=== PATIENT | male | born 1960 | race Two or more races ===

== ENCOUNTER 2023-11-24 17:18 | Emergency (ER) | payer OTHER ==
[~2023-11-24] VITALS: Ht 177.8 cm; Wt 76.2 kg
[~2023-11-24 17:18] MED LIST: CIPRO500 MG PO; PERCOCET 5/321 UDTAB PO; RECTICARE30 GM TP
[2023-11-24] MEDS ORDERED: SYNTHROID88 MCG (19:37)
[2023-11-24] MEDS ORDERED: ZETIA10 MG (19:37)
[2023-11-24] MEDS ORDERED: CRESTOR5 MG (19:37)
[2023-11-24] MEDS ORDERED: TELMISARTAN20 MG (19:38)
[2023-11-24] MEDS ORDERED: PROTONIX40 MG (19:39)
[2023-11-24] MEDS ORDERED: PEPCID AC20 MG (19:39)
[2023-11-24] MEDS ORDERED: PANTOPRAZOLE SODIUM 40 MG/VIAL VIAL IV ONE (22:15)
[2023-11-24] MEDS ORDERED: FAMOTIDINE/PF 20 MG/2 ML VIAL IV ONE (22:15)
[2023-11-24 23:21] LABS: HEMATOCRIT 41.9 % (39.0-48.0); HEMOGLOBIN 14.9 g/dL (13-16.00); MEAN CORPUSCULAR HEMOGLOBIN 32.8 pg (27.00-32.0); MEAN CORPUSCULAR HGB CONC 35.6 g/dl (32.0-36.0); PLATELET COUNT 209 K/uL (150-450); RED BLOOD COUNT 4.56 M/uL (4.00-6.00); RED CELL DISTRIBUTION WIDTH 13.8 % (11.5-14.5)
[2023-11-24 23:57] LABS: ALBUMIN 3.7 gm/dL (3.4-5.0); BILIRUBIN TOTAL 1.39 mg/dL (0.3-1.2); CALCIUM 9.3 mg/dL (8.5-10.1); CREATININE SERUM 0.95 mg/dL (0.70-1.30); GFR 80.33; POTASSIUM 4.21 mEq/L (3.5-5.1); TOTAL PROTEIN 7.7 gm/dL (6.4-8.2)
== END 2023-11-25 01:35 | disposition home or self-care (01) ==
LOC: ER 17:19
PROVIDERS: Emergency Medicine
DX: R10.9 Unspecified abdominal pain (principal); Z91.013 Allergy to seafood; Z91.041 Radiographic dye allergy status

== ENCOUNTER 2023-11-25 12:55 | Outpatient (CLI) | payer OTHER ==
[~2023-11-25 12:55] MED LIST changes: +CRESTOR5 MG; +PEPCID AC20 MG; +PROTONIX40 MG; +SYNTHROID88 MCG; +TELMISARTAN20 MG; +ZETIA10 MG
== END 2023-11-25 13:03 | disposition home or self-care (01) ==
LOC: RAD 12:55
DX: J20.8 Acute bronchitis due to other specified organisms (principal); R22.31 Localized swelling, mass and lump, right upper limb

== ENCOUNTER 2023-12-10 09:39 | Emergency (ER) | payer OTHER ==
[~2023-12-10] VITALS: Ht 177.8 cm; Wt 70.8 kg
[2023-12-10] MEDS ORDERED: CEFTRIAXONE SODIUM 1,000 MG VIAL IM STA (10:25)
[2023-12-10] MEDS ORDERED: METHYLPREDNISOLONE SOD SUCC 125 MG VIAL IM STA (10:25)
[2023-12-10] MEDS ORDERED: METHYLPREDNISOLONE SOD SUCC 40 MG VIAL ONE (10:39)
[2023-12-10] MEDS ORDERED: CEFTRIAXONE SODIUM 1,000 MG VIAL ONE (10:39)
== END 2023-12-10 10:56 | disposition home or self-care (01) ==
LOC: ER 09:40
DX: R05.9 Cough, unspecified (principal); Z88.8 Allergy status to other drugs, medicaments and biological substances; Z91.013 Allergy to seafood

== ENCOUNTER 2023-12-15 15:44 | Outpatient (CLI) | payer OTHER | END 2023-12-15 15:45 | disposition home or self-care (01) | LOC: TOM 15:44 | PROVIDERS: ATTEND Specialist | DX: R94.2 Abnormal results of pulmonary function studies (principal); R05.2 Subacute cough ==

== ENCOUNTER → 2023-12-15 | Outpatient (CLI) | payer OTHER ==
[2023-12-15 16:59] LABS: HEMATOCRIT 44.5 % (39.0-48.0); HEMOGLOBIN 15.8 g/dL (13-16.00); MEAN CELL VOLUME 92.1 fL (80.0-100.00); MEAN CORPUSCULAR HEMOGLOBIN 32.7 pg (27.00-32.0); MEAN CORPUSCULAR HGB CONC 35.5 g/dl (32.0-36.0); PLATELET COUNT 269 K/uL (150-450); RED BLOOD COUNT 4.83 M/uL (4.00-6.00); RED CELL DISTRIBUTION WIDTH 12.8 % (11.5-14.5)
== END | disposition home or self-care (01) ==
LOC: LAB 16:20
PROVIDERS: ATTEND Specialist
DX: R05.2 Subacute cough (principal); J20.0 Acute bronchitis due to Mycoplasma pneumoniae; R94.2 Abnormal results of pulmonary function studies

== ENCOUNTER 2024-01-23 14:23 | Outpatient (CLI) | payer OTHER | END 2024-01-23 14:28 | disposition home or self-care (01) | LOC: SONOGRAMA 14:23 | DX: E04.2 Nontoxic multinodular goiter (principal); E03.8 Other specified hypothyroidism ==

== ENCOUNTER 2024-03-27 13:01 | Outpatient (CLI) | payer OTHER ==
[2024-03-27 14:14] LABS: PH,URINE 5.5 (5.0-8.0); URINE APPEARANCE Clear; URINE BILIRRUBIN Negative (NEGATIVE); URINE BLOOD Negative; URINE COLOR Yellow; URINE GLUCOSE Negative (NEGATIVE); URINE KETONE Negative (NEGATIVE); URINE LEUKOCYTE Negative; URINE NITRATE Negative; URINE PROTEIN Negative (NEGATIVE); URINE UROBILINOGEN 0.2 E.U./dl
[2024-03-27 14:18] LABS: URINE RBC 2.1 uL (0.0-20.8)
[2024-03-27 14:43] LABS: URINE BACTERIA 0 uL (0.0-1933); URINE EPITHELIAL CELLS 0.2 uL (0.0-38.8); URINE WBC 0.2 uL (0.0-23.2)
[2024-03-27 15:25] LABS: ALBUMIN 4.2 gm/dL (3.4-5.0); BILIRUBIN TOTAL 3.37 mg/dL (0.3-1.2); CALCIUM 9.6 mg/dL (8.5-10.1); CREATININE SERUM 1.48 mg/dL (0.70-1.30); GFR 48.16; POTASSIUM 4.08 mEq/L (3.5-5.1); TOTAL PROTEIN 7.2 gm/dL (6.4-8.2)
[2024-03-30 00:05] LABS: chla t Negative (Negative); neiss Negative (Negative)
== END 2024-03-27 13:02 | disposition home or self-care (01) ==
LOC: LAB 13:01
DX: Z20.6 Contact with and (suspected) exposure to human immunodeficiency virus [HIV] (principal); Z20.5 Contact with and (suspected) exposure to viral hepatitis; Z11.3 Encounter for screening for infections with a predominantly sexual mode of transmission

== ENCOUNTER 2024-04-19 13:32 | Outpatient (CLI) | payer OTHER | END 2024-04-19 13:33 | disposition home or self-care (01) | LOC: LAB 13:32 | DX: E03.8 Other specified hypothyroidism (principal) ==

== ENCOUNTER 2024-05-24 13:00 | Outpatient (CLI) | payer OTHER | END 2024-05-24 13:06 | disposition home or self-care (01) | LOC: LAB 13:00 | DX: B00.9 Herpesviral infection, unspecified (principal) ==

== ENCOUNTER 2024-05-29 12:27 | Outpatient (CLI) | payer OTHER ==
[2024-05-29 13:44] LABS: PH,URINE 6.5 (5.0-8.0); URINE APPEARANCE Clear; URINE BILIRRUBIN Negative (NEGATIVE); URINE BLOOD Negative; URINE COLOR Yellow; URINE GLUCOSE Negative (NEGATIVE); URINE KETONE Negative (NEGATIVE); URINE LEUKOCYTE Negative; URINE NITRATE Negative; URINE PROTEIN Negative (NEGATIVE); URINE UROBILINOGEN 0.2 E.U./dl
[2024-05-29 13:48] LABS: URINE RBC 5.7 uL (0.0-20.8)
[2024-05-29 13:52] LABS: URINE BACTERIA 1.2 uL (0.0-1933); URINE EPITHELIAL CELLS 0.6 uL (0.0-38.8); URINE WBC 1.4 uL (0.0-23.2)
[2024-05-30 14:22] LABS: ALBUMIN 3.3 gm/dL (3.4-5.0); BILIRUBIN TOTAL 1.08 mg/dL (0.3-1.2); CALCIUM 8.9 mg/dL (8.5-10.1); CHOL HDL RATIO 3.7 (0-5.0); CREATININE SERUM 1.06 mg/dL (0.70-1.30); GFR 70.79; GLOBULINA 3.7 G/DL (2.4-3.5); POTASSIUM 4.69 mEq/L (3.5-5.1)
[2024-05-30 14:25] LABS: PROSTATIC SPECIFIC ANTIGEN 1.19 NG/ML (0.010-4.00)
[2024-06-01 00:04] LABS: chla t Negative (Negative); neiss Negative (Negative)
[2024-06-02 06:04] LABS: hav igm Negative (Negative); hcv Non Reactive (Non Reactive); hep b c Negative (Negative); hep b s ag Negative (Negative)
== END 2024-05-29 12:28 | disposition home or self-care (01) ==
LOC: LAB 12:27
PROVIDERS: ATTEND Urology
DX: N39.0 Urinary tract infection, site not specified (principal); N40.1 Benign prostatic hyperplasia with lower urinary tract symptoms; Z20.6 Contact with and (suspected) exposure to human immunodeficiency virus [HIV]; Z20.5 Contact with and (suspected) exposure to viral hepatitis; Z11.3 Encounter for screening for infections with a predominantly sexual mode of transmission; I11.9 Hypertensive heart disease without heart failure; E78.2 Mixed hyperlipidemia

== ENCOUNTER 2024-05-29 12:33 | Outpatient (CLI) | payer OTHER ==
[2024-05-29 13:29] LABS: HEMATOCRIT 41.4 % (39.0-48.0); HEMOGLOBIN 14.2 g/dL (13-16.00); MEAN CORPUSCULAR HEMOGLOBIN 31.3 pg (27.00-32.0); MEAN CORPUSCULAR HGB CONC 34.4 g/dl (32.0-36.0); PLATELET COUNT 297 K/uL (150-450); RED BLOOD COUNT 4.55 M/uL (4.00-6.00); RED CELL DISTRIBUTION WIDTH 13.8 % (11.5-14.5)
== END 2024-05-29 23:00 | disposition home or self-care (01) ==
LOC: LAB 12:33
DX: Z00.00 Encounter for general adult medical examination without abnormal findings (principal)

== ENCOUNTER 2024-05-30 20:44 | Emergency (ER) | payer OTHER ==
[~2024-05-30] VITALS: Ht 177.8 cm; Wt 71.7 kg
== END 2024-05-30 21:41 | disposition home or self-care (01) ==
LOC: ER 20:46
DX: R53.81 Other malaise (principal); Z91.013 Allergy to seafood; Z91.041 Radiographic dye allergy status

== ENCOUNTER → 2024-07-03 12:52 | Outpatient (CLI) | payer OTHER | END | disposition home or self-care (01) | LOC: LAB 12:52 | DX: A51.39 Other secondary syphilis of skin (principal) ==

== ENCOUNTER 2024-07-17 11:43 | Outpatient (CLI) | payer OTHER ==
[2024-07-17 12:03] LABS: HEMATOCRIT 40.7 % (39.0-48.0); HEMOGLOBIN 13.9 g/dL (13-16.00); MEAN CELL VOLUME 91.8 fL (80.0-100.00); MEAN CORPUSCULAR HEMOGLOBIN 31.4 pg (27.00-32.0); MEAN CORPUSCULAR HGB CONC 34.2 g/dl (32.0-36.0); PLATELET COUNT 216 K/uL (150-450); RED BLOOD COUNT 4.43 M/uL (4.00-6.00); RED CELL DISTRIBUTION WIDTH 13.9 % (11.5-14.5)
[2024-07-17 12:30] LABS: URINE APPEARANCE Clear; URINE BILIRRUBIN Negative (NEGATIVE); URINE BLOOD Negative; URINE COLOR Yellow; URINE GLUCOSE Negative (NEGATIVE); URINE KETONE Trace (NEGATIVE); URINE LEUKOCYTE Trace; URINE NITRATE Negative; URINE PROTEIN Negative (NEGATIVE); URINE UROBILINOGEN 0.2 E.U./dl
[2024-07-17 12:33] LABS: URINE RBC 6.3 uL (0.0-20.8)
[2024-07-17 12:34] LABS: URINE BACTERIA 1.2 uL (0.0-1933); URINE EPITHELIAL CELLS 0.9 uL (0.0-38.8); URINE WBC 0.7 uL (0.0-23.2)
[2024-07-17 12:52] LABS: ALBUMIN 3.8 gm/dL (3.4-5.0); BILIRUBIN TOTAL 2.13 mg/dL (0.3-1.2); CALCIUM 9.1 mg/dL (8.5-10.1); CREATININE SERUM 1.17 mg/dL (0.70-1.30); GFR 62.96; POTASSIUM 4.46 mEq/L (3.5-5.1); TOTAL PROTEIN 6.8 gm/dL (6.4-8.2)
== END 2024-07-17 13:09 | disposition home or self-care (01) ==
LOC: LAB 11:43
DX: D64.9 Anemia, unspecified (principal); N39.0 Urinary tract infection, site not specified; E78.49 Other hyperlipidemia

== ENCOUNTER 2024-07-17 12:08 | Outpatient (CLI) | payer OTHER | END 2024-07-17 12:15 | disposition home or self-care (01) | LOC: SONOGRAMA 12:08 | DX: R10.9 Unspecified abdominal pain (principal); R10.2 Pelvic and perineal pain ==

== ENCOUNTER 2024-07-20 13:27 | Outpatient (CLI) | payer OTHER ==
[2024-07-20 15:15] LABS: FERRITIN 24.5 NG/ML (26-388)
[2024-07-24 09:05] LABS: HEPATITIS B SURFACE ANTIBODY Non Reactive (.); HEPATITIS C VIRUS ANTIBODY Non Reactive (Non Reactive)
== END 2024-07-20 13:33 | disposition home or self-care (01) ==
LOC: LAB 13:27
DX: B19.20 Unspecified viral hepatitis C without hepatic coma (principal); R19.4 Change in bowel habit; R76.0 Raised antibody titer; J45.909 Unspecified asthma, uncomplicated; E61.1 Iron deficiency; D50.9 Iron deficiency anemia, unspecified

== ENCOUNTER → 2024-09-27 13:07 | Outpatient (CLI) | payer OTHER ==
[2024-09-27 13:42] LABS: BASO % 0.5 % (0.1-1.2); EOS # 0.02 (0.04-0.54); EOS % 0.5 % (0.7-7.0); HEMATOCRIT 35.5 % (40.1-51.0); LYMPH # 0.94 (1.18-3.74); MEAN CORPUSCULAR HEMOGLOBIN 31.7 pg (25.6-32.2); MONO # 0.31 (0.24-0.82); MONO % 7.9 % (4.7-12.5); NEUT # 2.62 (1.56-6.13); NEUT % 67.1 % (34.0-71.1); PLATELET COUNT 199 K/uL (163-369); RED CELL DISTRIBUTION WIDTH 13.5 % (11.6-14.4)
[2024-09-27 13:49] LABS: PH,URINE 5.5 (5.0-8.0); URINE APPEARANCE Clear; URINE BILIRRUBIN Negative (NEGATIVE); URINE BLOOD Negative; URINE COLOR Yellow; URINE GLUCOSE Negative (NEGATIVE); URINE KETONE Negative (NEGATIVE); URINE LEUKOCYTE Negative; URINE NITRATE Negative; URINE PROTEIN Negative (NEGATIVE); URINE UROBILINOGEN 0.2 E.U./dl
[2024-09-27 13:54] LABS: URINE BACTERIA 1.2 uL (0.0-1933); URINE RBC 1.1 uL (0.0-20.8); URINE WBC 0.4 uL (0.0-23.2)
[2024-09-27 14:55] LABS: ALBUMIN 3.7 gm/dL (3.4-5.0); BILIRUBIN TOTAL 2.01 mg/dL (0.3-1.2); CALCIUM 8.6 mg/dL (8.5-10.1); CHOL HDL RATIO 2.9 (0-5.0); CREATININE SERUM 1.08 mg/dL (0.70-1.30); GFR 69.05; GLOBULINA 2.7 G/DL (2.4-3.5); POTASSIUM 4.32 mEq/L (3.5-5.1); TOTAL PROTEIN 6.4 gm/dL (6.4-8.2); TSH 2.25 uIU/mL (0.358-3.74)
== END | disposition home or self-care (01) ==
LOC: LAB 13:07
DX: E03.8 Other specified hypothyroidism (principal); A63.8 Other specified predominantly sexually transmitted diseases; A51.39 Other secondary syphilis of skin; Z20.2 Contact with and (suspected) exposure to infections with a predominantly sexual mode of transmission; N39.0 Urinary tract infection, site not specified; I11.9 Hypertensive heart disease without heart failure; E78.2 Mixed hyperlipidemia; E11.9 Type 2 diabetes mellitus without complications; E03.9 Hypothyroidism, unspecified

== ENCOUNTER → 2024-10-26 14:08 | Outpatient (CLI) | payer OTHER ==
[2024-10-26 14:40] LABS: HEMATOCRIT 36.3 % (40.1-51.0); HEMOGLOBIN 13.1 g/dL (13.7-17.5); LYMPH # 0.83 (1.18-3.74); LYMPH % 11.9 % (19.3-53.1); MEAN CORPUSCULAR HEMOGLOBIN 31.3 pg (25.6-32.2); MONO % 5.7 % (4.7-12.5); NEUT # 5.74 (1.56-6.13); PLATELET COUNT 247 K/uL (163-369); RED BLOOD COUNT 4.19 M/uL (4.63-6.08)
== END | disposition home or self-care (01) ==
LOC: LAB 14:08
DX: D50.9 Iron deficiency anemia, unspecified (principal)

== ENCOUNTER 2024-11-13 15:39 | Outpatient (CLI) | payer OTHER | END 2024-11-13 15:43 | disposition home or self-care (01) | LOC: RAD 15:39 | DX: M79.641 Pain in right hand (principal) ==

== ENCOUNTER 2024-11-23 16:27 | Emergency (ER) | payer OTHER ==
[~2024-11-23] VITALS: Ht 177.8 cm; Wt 71.7 kg
[2024-11-23] MEDS ORDERED: ASPIRIN 325 MG TABLET PO ONE (18:30)
[2024-11-23 18:38] LABS: BASO % 0.3 % (0.1-1.2); EOS # 0.04 (0.04-0.54); EOS % 1.1 % (0.7-7.0); LYMPH # 1.22 (1.18-3.74); LYMPH % 32.2 % (19.3-53.1); MEAN PLATELET VOLUME 10.10 fl (9.4-12.4); MONO # 0.32 (0.24-0.82); MONO % 8.4 % (4.7-12.5); NEUT # 2.20 (1.56-6.13); NEUT % 58.0 % (34.0-71.1); RED CELL DISTRIBUTION WIDTH 13.2 % (11.6-14.4)
[2024-11-23 19:09] LABS: ALT/SGPT 38.0 U/L (12-78); AST/SGOT 33.0 U/L (15-37); BILIRUBIN TOTAL 1.43 mg/dL (0.3-1.2); BUN CREA RATIO 11.0 (7.0-25.0); CREATININE SERUM 1.09 mg/dL (0.70-1.30); GFR 68.32; GLOBULINA 2.9 G/DL (2.4-3.5); GLUCOSE FASTING 91.0 mg/dL (65-100); LDH 184.0 U/L (87-241); OSMOLALITY SERUM 284.0 MOSM/KG (275-295); PHOSPHOKINASE CREATININE 321.0 U/L (39-308)
== END 2024-11-23 21:25 | disposition home or self-care (01) ==
LOC: ER 16:27
PROVIDERS: Emergency Medicine
DX: R07.89 Other chest pain (principal); R51.9 Headache, unspecified; I10 Essential (primary) hypertension; E03.9 Hypothyroidism, unspecified; Z88.8 Allergy status to other drugs, medicaments and biological substances; Z91.013 Allergy to seafood

== ENCOUNTER 2024-12-11 15:27 | Outpatient (CLI) | payer OTHER ==
[2024-12-11 16:21] LABS: BASO % 0.2 % (0.1-1.2); EOS # 0.01 (0.04-0.54); EOS % 0.2 % (0.7-7.0); LYMPH # 0.97 (1.18-3.74); LYMPH % 19.5 % (19.3-53.1); MEAN PLATELET VOLUME 10.30 fl (9.4-12.4); MONO # 0.38 (0.24-0.82); MONO % 7.6 % (4.7-12.5); NEUT # 3.59 (1.56-6.13); NEUT % 72.3 % (34.0-71.1); RED CELL DISTRIBUTION WIDTH 12.9 % (11.6-14.4)
[2024-12-11 17:04] LABS: ALT/SGPT 42.0 U/L (12-78); AST/SGOT 27.0 U/L (15-37); BILIRUBIN TOTAL 1.76 mg/dL (0.3-1.2); BUN CREA RATIO 23.0 (7.0-25.0); CREATININE SERUM 1.14 mg/dL (0.70-1.30); FE 104.0 ug/dl (65-175); GFR 64.88; GLOBULINA 3.1 G/DL (2.4-3.5); GLUCOSE FASTING 113.0 mg/dL (65-100); OSMOLALITY SERUM 287.0 MOSM/KG (275-295)
[2024-12-13 13:08] LABS: kappa lambda r 1.01 (0.26-1.65); kappa light 18.7 mg/L (3.3-19.4)
== END 2024-12-11 15:31 | disposition home or self-care (01) ==
LOC: LAB 15:27
PROVIDERS: ATTEND Internal Medicine
DX: D50.8 Other iron deficiency anemias (principal); D47.2 Monoclonal gammopathy; D72.818 Other decreased white blood cell count; D53.1 Other megaloblastic anemias, not elsewhere classified; E85.9 Amyloidosis, unspecified

== ENCOUNTER → 2025-01-15 13:04 | Outpatient (CLI) | payer OTHER ==
[2025-01-15 13:50] LABS: URINE APPEARANCE Clear; URINE BILIRRUBIN Negative (NEGATIVE); URINE BLOOD Negative; URINE COLOR Yellow; URINE GLUCOSE Negative (NEGATIVE); URINE KETONE Negative (NEGATIVE); URINE LEUKOCYTE Negative; URINE NITRATE Negative; URINE PROTEIN Negative (NEGATIVE); URINE UROBILINOGEN 0.2 E.U./dl
[2025-01-15 13:54] LABS: URINE BACTERIA 8.3 uL (0.0-1933); URINE RBC 4.2 uL (0.0-20.8)
[2025-01-15 14:00] LABS: URINE CAST 0.00 uL (0.0-1.40); URINE EPITHELIAL CELLS 0.6 uL (0.0-38.8); URINE WBC 0.1 uL (0.0-23.2)
[2025-01-15 14:42] LABS: ALT/SGPT 40.0 U/L (12-78); AST/SGOT 25.0 U/L (15-37); BILIRUBIN TOTAL 1.69 mg/dL (0.3-1.2); BUN CREA RATIO 18.0 (7.0-25.0); CREATININE SERUM 1.09 mg/dL (0.70-1.30); GFR 68.32; GLOBULINA 2.8 G/DL (2.4-3.5); GLUCOSE FASTING 94.0 mg/dL (65-100); OSMOLALITY SERUM 284.0 MOSM/KG (275-295)
[2025-01-17 05:07] LABS: hav igm Negative (Negative); hep b c Negative (Negative); hep b s ag Negative (Negative)
[2025-01-17 21:07] LABS: chla t Negative (Negative); neiss Negative (Negative)
== END | disposition home or self-care (01) ==
LOC: LAB 13:04
DX: Z20.6 Contact with and (suspected) exposure to human immunodeficiency virus [HIV] (principal); Z20.5 Contact with and (suspected) exposure to viral hepatitis; Z72.51 High risk heterosexual behavior; Z11.3 Encounter for screening for infections with a predominantly sexual mode of transmission

== ENCOUNTER 2025-02-26 12:52 | Outpatient (CLI) | payer OTHER ==
[2025-02-26 15:17] LABS: ALT/SGPT 45.0 U/L (12-78); AST/SGOT 30.0 U/L (15-37); BILIRUBIN TOTAL 1.89 mg/dL (0.3-1.2); BUN CREA RATIO 19.0 (7.0-25.0); CREATININE SERUM 0.95 mg/dL (0.70-1.30); GFR 80.07; GLOBULINA 2.8 G/DL (2.4-3.5); GLUCOSE FASTING 99.0 mg/dL (65-100); OSMOLALITY SERUM 287.0 MOSM/KG (275-295)
[2025-02-26 15:21] LABS: CHOL HDL RATIO 3.1 (0-5.0); HDL 50.0 mg/dl (40-60); LDL 94.0 mg/dl (0-130); VLDL 9.0 (0-39)
== END 2025-02-26 12:54 | disposition home or self-care (01) ==
LOC: LAB 12:52
PROVIDERS: ATTEND Specialist
DX: I11.9 Hypertensive heart disease without heart failure (principal); E78.2 Mixed hyperlipidemia

== ENCOUNTER 2025-03-12 15:23 | Emergency (ER) | payer OTHER ==
[~2025-03-12] VITALS: Ht 177.8 cm; Wt 68.0 kg
[2025-03-12] MEDS ORDERED: 0.9 % SODIUM CHLORIDE 1,000 ML IV ONE (16:45)
[2025-03-12] MEDS ORDERED: LACTOBACILLUS ACIDOPHILUS 1 CAP CAP PO ONE ×2 (16:45→17:05)
[2025-03-12] MEDS ORDERED: FAMOTIDINE/PF 20 MG/2 ML VIAL IV ONE (16:45)
[2025-03-12] MEDS ORDERED: FAMOTIDINE/PF 20 MG/2 ML VIAL ONE (17:05)
[2025-03-12 17:12] LABS: BASO % 0.2 % (0.1-1.2); EOS # 0.01 (0.04-0.54); EOS % 0.2 % (0.7-7.0); LYMPH # 1.09 (1.18-3.74); LYMPH % 25.3 % (19.3-53.1); MEAN PLATELET VOLUME 10.20 fl (9.4-12.4); MONO # 0.62 (0.24-0.82); NEUT # 2.57 (1.56-6.13); NEUT % 59.9 % (34.0-71.1); RED CELL DISTRIBUTION WIDTH 12.6 % (11.6-14.4)
[2025-03-12 17:15] LABS: MONO % 14.4 % (4.7-12.5)
[2025-03-12 17:59] LABS: COVID-19 AG NEGATIVE (NEGATIVE)
[2025-03-12 18:24] LABS: ALT/SGPT 36.0 U/L (12-78); AST/SGOT 40.0 U/L (15-37); BILIRUBIN TOTAL 1.7 mg/dL (0.3-1.2); BUN CREA RATIO 15.0 (7.0-25.0); CREATININE SERUM 1.27 mg/dL (0.70-1.30); GFR 57.28; GLOBULINA 3.5 G/DL (2.4-3.5); GLUCOSE FASTING 103.0 mg/dL (65-100); OSMOLALITY SERUM 284.0 MOSM/KG (275-295)
[2025-03-12] MEDS ORDERED: INTESTINEX680 M1 PO (21:06)
[2025-03-12 22:24] VITALS: BP 135/81; O2SAT 97
[2025-03-13] MEDS ORDERED: CIPRO500 MG PO (18:13)
[2025-03-13] MEDS ORDERED: METRONIDAZOLE500 MG PO (18:13)
[2025-03-13] MEDS ORDERED: PROBIOTIC1 EAC2 PO (18:13)
[2025-03-13] MEDS ORDERED: PEPCID AC20 MG PO (18:13)
== END 2025-03-12 22:25 | disposition home or self-care (01) ==
LOC: ER 15:23
PROVIDERS: General Practice
DX: R19.7 Diarrhea, unspecified (principal); I10 Essential (primary) hypertension; L40.59 Other psoriatic arthropathy; E03.8 Other specified hypothyroidism; G47.39 Other sleep apnea; E78.49 Other hyperlipidemia; Z91.041 Radiographic dye allergy status; Z91.013 Allergy to seafood; Z20.822 Contact with and (suspected) exposure to COVID-19

== ENCOUNTER 2025-03-13 13:32 | Emergency (ER) | payer OTHER ==
[~2025-03-13] VITALS: Ht 177.8 cm; Wt 72.6 kg
[~2025-03-13 13:32] MED LIST changes: +INTESTINEX680 M1 PO
[2025-03-13 15:13] VITALS: BP 103/70; O2SAT 98
[2025-03-13] MEDS ORDERED: ACETAMINOPHEN 325 MG TABLET PO ONE (16:30)
[2025-03-13] MEDS ORDERED: 0.9 % SODIUM CHLORIDE 1,000 ML IV SCH (16:45)
[2025-03-13 17:18] LABS: BASO % 0.4 % (0.1-1.2); EOS # 0.01 (0.04-0.54); EOS % 0.2 % (0.7-7.0); LYMPH # 1.26 (1.18-3.74); LYMPH % 25.0 % (19.3-53.1); MEAN PLATELET VOLUME 10.00 fl (9.4-12.4); MONO # 0.79 (0.24-0.82); NEUT # 2.96 (1.56-6.13); NEUT % 58.6 % (34.0-71.1); RED CELL DISTRIBUTION WIDTH 12.5 % (11.6-14.4)
[2025-03-13 17:24] LABS: MONO % 15.6 % (4.7-12.5)
[2025-03-13] MEDS ORDERED: FAMOTIDINE/PF 20 MG in 0.9 % SODIUM CHLORIDE 100 ML IV ONE (17:30)
[2025-03-13] MEDS ORDERED: FAMOtidine 10 MG/ML (4ML VIAL) IV PUSH ONE (17:30)
[2025-03-13 17:54] LABS: ALT/SGPT 33.0 U/L (12-78); AST/SGOT 32.0 U/L (15-37); BILIRUBIN TOTAL 2.13 mg/dL (0.3-1.2); BILIRUBIN,CONJUGATED 0.4 mg/dL (0.0-0.2); BUN CREA RATIO 13.0 (7.0-25.0); CREATININE SERUM 0.93 mg/dL (0.70-1.30); GFR 82.06; GLOBULINA 3.6 G/DL (2.4-3.5); GLUCOSE FASTING 112.0 mg/dL (65-100); OSMOLALITY SERUM 284.0 MOSM/KG (275-295)
[2025-03-13] MEDS ORDERED: PROBIOTIC1 EAC2 PO (18:13)
[2025-03-13] MEDS ORDERED: METRONIDAZOLE500 MG PO (18:13)
[2025-03-13] MEDS ORDERED: PEPCID AC20 MG PO (18:13)
[2025-03-13] MEDS ORDERED: CIPRO500 MG PO (18:13)
== END 2025-03-14 01:43 | disposition home or self-care (01) ==
LOC: ER 13:32
PROVIDERS: General Practice
DX: K29.60 Other gastritis without bleeding (principal); I10 Essential (primary) hypertension; E03.9 Hypothyroidism, unspecified; Z88.8 Allergy status to other drugs, medicaments and biological substances; Z91.013 Allergy to seafood

== ENCOUNTER 2025-04-09 12:19 | Outpatient (CLI) | payer OTHER ==
[~2025-04-09 12:19] MED LIST changes: +METRONIDAZOLE500 MG PO; +PEPCID AC20 MG PO; +PROBIOTIC1 EAC2 PO
[2025-04-09 13:57] LABS: BASO % 0.4 % (0.1-1.2); EOS # 0.02 (0.04-0.54); EOS % 0.4 % (0.7-7.0); LYMPH # 1.16 (1.18-3.74); LYMPH % 25.6 % (19.3-53.1); MEAN PLATELET VOLUME 10.60 fl (9.4-12.4); MONO # 0.34 (0.24-0.82); MONO % 7.5 % (4.7-12.5); NEUT # 2.99 (1.56-6.13); NEUT % 65.9 % (34.0-71.1); RED CELL DISTRIBUTION WIDTH 13.0 % (11.6-14.4)
[2025-04-09 13:59] LABS: URINE APPEARANCE Clear; URINE BILIRRUBIN Negative (NEGATIVE); URINE BLOOD Negative; URINE COLOR Yellow; URINE GLUCOSE Negative (NEGATIVE); URINE KETONE Negative (NEGATIVE); URINE LEUKOCYTE Trace; URINE NITRATE Negative; URINE PROTEIN Negative (NEGATIVE); URINE UROBILINOGEN 0.2 E.U./dl
[2025-04-09 14:02] LABS: URINE BACTERIA 4.7 uL (0.0-1933); URINE RBC 3.5 uL (0.0-20.8)
[2025-04-09 14:09] LABS: URINE CAST 0.00 uL (0.0-1.40); URINE EPITHELIAL CELLS 0.9 uL (0.0-38.8); URINE WBC 0.1 uL (0.0-23.2)
[2025-04-09 14:39] LABS: CHOL HDL RATIO 2.4 (0-5.0); HDL 56.0 mg/dl (40-60); LDL 68.0 mg/dl (0-130); VLDL 10.0 (0-39)
[2025-04-09 14:47] LABS: ALT/SGPT 33.0 U/L (12-78); AST/SGOT 25.0 U/L (15-37); BILIRUBIN TOTAL 2.64 mg/dL (0.3-1.2); BUN CREA RATIO 14.0 (7.0-25.0); CREATININE SERUM 0.97 mg/dL (0.70-1.30); GFR 78.17; GLOBULINA 2.8 G/DL (2.4-3.5); GLUCOSE FASTING 100.0 mg/dL (65-100); OSMOLALITY SERUM 284.0 MOSM/KG (275-295); TSH 1.47 uIU/mL (0.358-3.74)
== END 2025-04-09 12:28 | disposition home or self-care (01) ==
LOC: LAB 12:19
DX: E03.8 Other specified hypothyroidism (principal); Z29.81 Encounter for HIV pre-exposure prophylaxis; Z20.6 Contact with and (suspected) exposure to human immunodeficiency virus [HIV]; Z20.5 Contact with and (suspected) exposure to viral hepatitis; Z72.51 High risk heterosexual behavior; Z11.3 Encounter for screening for infections with a predominantly sexual mode of transmission